=== PATIENT | male | born 1990 | race Caucasian/White ===

== ENCOUNTER 2021-03-22 10:45 | Emergency (ER) | payer SELFPAY ==
--- NOTE | ~2021-03-22 | XR_ITS ---
XR wrist LT min 3V DATE: 03/22/2021 11:05 INDICATION: Fall. Left wrist injury, pain TECHNIQUE: 4 views COMPARISON: None FINDINGS: There are likely chronic loose convex posterolateral bony projections along the distal radi al metaphyseal area. No apparent recent fracture is evident. Normal alignment at the wrist joint. IMPRESSION: Posterolateral convex smooth projections at the distal radial metaphyseal area, possibly due to old fracture. No definite recent fracture is evident. If there is clinical concern for subtle radiographically occult acute fracture, consider CT examinati on Reviewed, dictated and finalized at location B. IMPRESSION: Posterolateral convex smooth projections at the distal radial metap hyseal area, possibly due to old fracture. No definite recent fracture is evident. If there is clinical concern for subtle radiographically occult acute fracture, consider CT examination
--- NOTE | 2021-03-22 10:47 | ED.UPPEXIN ---
HPI - Extremity Injury (Upper) General Chief Complaint: Extremity Injury, Upper Stated Complaint: Left Wrist Pain Time Seen by Provider: 03/22/21 10:47 Source: patient and RN notes reviewed History of Present Illness HPI narrative: Patient is a 30-year-old male who presents the urgent care with complaints of left wrist pain and swelling. Patient states that [place] and has been taking ibuprofen for the pain. Patient is right-hand dominant. States that pain increases with any type of movement or rotation. No other acute complaints or injuries. No acute distress noted. Patient aware of the plan of care. Some parts of this dictation were generated by voice recognition software and may contain typographical and/or grammatical inaccuracies. Related Data Allergies Allergy/AdvReac Type Severity Reaction Status Date / Time No Known Allergies Allergy Verified 03/22/21 10:49 Review of Systems Review of Systems: Narrative: CONSTITUTIONAL: Denies fever, chills, or sweats. EYES: Denies visual changes, redness, or discharge. ENT: Denies rhinorrhea, congestion, sore throat, or otalgia. CARDIOVASCULAR: Denies chest pain, palpitations, or edema. RESPIRATORY: Denies cough or dyspnea. GASTROINTESTINAL: Denies abdominal pain, nausea, vomiting, or diarrhea. GENITOURINARY: Denies dysuria or hematuria. SKIN: Denies rash or itching. MUSCULOSKELETAL: Reports of left wrist pain and swelling NEUROLOGIC: Denies headache, numbness, or weakness. All other systems reviewed are negative, except as documented in HPI. PMFSH Comments At the time of my signature, I reviewed and agree with the nursing past medical, surgical, social, and family history. There is no relevant family history pertinent to the patient complaint. Exam Narrative: Exam Narrative: GENERAL: This is a well-nourished, well-developed patient, in no apparent distress. HEAD: normocephalic, atraumatic. EYES: PERRL. Sclera clear/white. Vision is grossly intact. EARS: External ears normal NOSE: External nose normal with no obvious nasal discharge, nares without redness, no rhinorrhea. THROAT: Mucous membranes moist NECK: Neck supple CARDIOVASCULAR: Regular rate and rhythm without murmurs, gallops, or rubs. RESPIRATORY: Clear to auscultation. Breath sounds equal bilaterally. No wheezes, rales, or rhonchi. SKIN: warm, intact with no suspicious lesions or rash, good texture and turgor. NEURO: awake, alert, and oriented to person, place and time. There were no obvious focal neurologic abnormalities. EXTREMITIES: Mild to moderate left ulnar and radial wrist swelling and tenderness. Mild ecchymosis. Positive strong left radial pulse with capillary refill less than 2 seconds. Pain exacerbated with rotation and movement of the left upper extremity. Course Vital Signs Vital signs: Vital Signs Temperature 96.1 F L 03/22/21 10:58 Pulse Rate 82 03/22/21 10:58 Respiratory Rate 16 03/22/21 10:58 Blood Pressure 118/79 03/22/21 10:58 Pulse Oximetry 100 03/22/21 10:58 Temperature 96.1 F L 03/22/21 10:58 Pulse Rate 82 03/22/21 10:58 Respiratory Rate 16 03/22/21 10:58 Blood Pressure 118/79 03/22/21 10:58 Pulse Oximetry 100 03/22/21 10:58 Reviewed Procedures Orthopedic Splinting/Casting Injury #1: Side: left Upper Extremity Injury Location: wrist OCL: volar Pre-Procedure Neuro Vascular Exam: normal Post-Procedure Neuro Vascular Exam: normal Other Orthopedic Equipment: other (Sling) Additional Comments: Volar short arm OCL placed to the left upper extremity/wrist for possible acute fracture. Sling applied. Neurovascular exam within normal limits pre and post procedure. Patient tolerated well. MDM - Extremity Injury (Upper) MDM Narrative Medical decision making narrative: Reviewed x-ray results with the patient. He is aware that x-ray read was uncertain from radiologist and
[2021-03-22 10:58] VITALS: BP 118/79; PULSE 82; RESP 16; TEMP 35.6; O2SAT 100
== END 2021-03-22 11:36 | disposition home or self-care (01) ==
PROVIDERS: Emergency Provider Nurse Practitioner Family
DX: S69.92XA Unspecified injury of left wrist, hand and finger(s), initial encounter (principal); W19.XXXA Unspecified fall, initial encounter
CPT/HCPCS: 29125; 73110; 99204; G0463